=== PATIENT | female | born 1940 ===

== ENCOUNTER 2020-10-19 06:10 | Day surgery (SDC) | payer OTHER | END 2020-10-19 10:50 | disposition home or self-care (01) | LOC: AMB-ENDOS 06:10 | PROVIDERS: ATTEND Colon & Rectal Surgery | DX: D12.2 Benign neoplasm of ascending colon (principal); D12.4 Benign neoplasm of descending colon; Z20.822 Contact with and (suspected) exposure to COVID-19; K64.0 First degree hemorrhoids ==